=== PATIENT | female | born 1990 | race African-American/Black ===

== ENCOUNTER 2019-06-03 04:44 | Observation (INO) | payer MEDICAID ==
[~2019-06-03] VITALS: Ht 165.1 cm; Wt 73.0 kg
[2019-06-03 05:06] LABS: BILIRUBIN,URINE NEGATIVE (NEG); CLARITY,URINE CLEAR; COLOR,URINE YELLOW; NITRITE,URINE NEGATIVE (NEG); PH,URINE 6.5; PROTEIN,URINE NEGATIVE (NEG-TRACE); UROBILINOGEN,URINE 0.2 mg/dL (0.2 mg/dL)
--- NOTE | 2019-06-03 05:07 | PHYS DOC ---
Past Medical History Past Medical History: No Pertinent History (DIANN MENDES DO) Past Surgical History: No Surgical History (DIANN MENDES DO) Additional Information: Nonsmoker Alcohol Use: None Drug Use: None (DIANN MENDES DO) Adult General Chief Complaint Chief Complaint: ABDOMINAL PAIN IN HPI HPI 28-year-old female presents as a AB2 (ectopic x 1, elective x 1) with upper abdominal cramping in at approximately 20 weeks and 2 days. Reports has been intermittent for last 2 days but started again tonight approximately 40 min prior to arrival. Reports associated nausea and vomiting. Denies diarrhea. Patient does report some issues with constipation, but reports she had a "large" bowel movement tonight. Denies vaginal bleeding or discharge. Denies trauma. Denies fever or chills. (DIANN MENDES DO) Review of Systems Review of Systems Constitutional: Denies fever or chills Eyes: Denies redness or eye pain HENT: Denies nasal congestion or sore throat Respiratory: Denies cough or shortness of breath Cardiovascular: Denies chest pain or palpitations GI: Reports abdominal pain, nausea, vomiting, and constipation /GAME ROOM ATTENDANT: Denies dysuria or hematuria; reports ; denies vaginal discharge and bleeding Musculoskeletal: Denies back pain or joint pain Integument: Denies rash or skin lesions Neurologic: Denies headache, focal weakness or sensory changes Complete systems were reviewed and found to be within normal limits, except as documented in this note. (DIANN MENDES DO) Current Medications Current Medications Current Medications Medications (Trade) Dose Ordered Sig/Rolando Start Time Stop Time Status Last Admin Dose Admin Famotidine (Pepcid Vial) 20 mg 1X ONCE 06/03/19 05:30 06/03/19 05:31 DC 06/03/19 05:12 20 MG Fentanyl Citrate (Fentanyl 2ml Vial) 50 mcg 1X ONCE 06/03/19 06:30 06/03/19 06:31 DC 06/03/19 06:18 50 MCG Morphine Sulfate (Morphine Sulfate) 4 mg 1X ONCE 06/03/19 07:00 06/03/19 07:01 DC 06/03/19 06:45 4 MG Ondansetron HCl (Zofran) 4 mg 1X ONCE 06/03/19 06:30 06/03/19 06:31 DC Sodium Chloride 1,000 ml @ 1,000 mls/hr 1X ONCE 06/03/19 05:30 06/03/19 06:29 DC 06/03/19 05:12 1,000 MLS/HR (RICARDO STEWARD DO) Allergies Allergies Allergies Coded Allergies Type Severity Reaction Last Updated Verified No Known Drug Allergies 06/03/19 No (RICARDO STEWARD DO) Physical Exam Physical Exam Constitutional: Well developed, well nourished, no acute distress, non-toxic appearance HENT: Normocephalic, atraumatic, oropharynx moist Eyes: Conjunctiva normal, no discharge Neck: Normal range of motion, no tenderness, supple Cardiovascular: Heart rate normal, regular rhythm Lungs & Thorax: Bilateral breath sounds clear to auscultation, no wheezing Abdomen: Soft, gravid uterus, tenderness to upper abdominal region Skin: Warm, dry, no erythema Back: No tenderness, no CVA tenderness Extremities: No tenderness, ROM intact, no edema Neurologic: Alert and oriented X 3, normal motor function, normal sensory function, no focal deficits noted Psychologic: Affect normal, judgement normal (DIANN MENDES DO) Current Patient Data Vital Signs Vital Signs Date Time Temp Pulse Resp B/P (MAP) Pulse Ox O2 Delivery O2 Flow Rate FiO2 06/03/19 06:52 100 Room Air 06/03/19 06:45 18 06/03/19 04:55 97.7 85 97.7 06/03/19 04:50 117/60 (79) (RICARDO STEWARD DO) Lab Values Laboratory Tests Test 06/03/19 04:57 06/03/19 05:03 Urine Collection Type Unknown Urine Color Yellow Urine Clarity Clear Urine pH 6.5 Urine Specific [place] 1.010 Urine Protein Negative mg/dL (NEG-TRACE) Urine Glucose (UA) Negative mg/dL (NEG) Urine Ketones (Stick) Negative mg/dL (NEG) Urine Blood Negative (NEG) Urine Nitrite Negative (NEG) Urine Bilirubin Negative (NEG) Urine Urobilinogen Dipstick 0.2 mg/dL (0.2 mg/dL) Urine Leukocyte Esterase Negative (NEG) Urine RBC 0 /HPF (0-2) Urine WBC Occ /HPF (0-4) Urine Squamous Epithelial Cells Mod /LPF Urine Bacteria Few /HPF (0-FEW) Urine Mucus Slight /LPF White Blood Count 12.5 x10^3/uL (4.0-11.0) H Red Blood Count 3.57 x10^6/uL (3.50-5.40) Hemoglobin 11.6 g/dL (12.0-15.5) L Hematocrit 33.3 % (36.0-47.0) L Mean Corpuscular Volume 94 fL (79-100) Mean Corpuscular Hemoglobin 33 pg (25-35) Mean Corpuscular Hemoglobin Concent 35 g/dL (31-37) Red Cell Distribution Width 13.0 % (11.5-14.5) Platelet Count 178 x10^3/uL (140-400) Neutrophils (%) (Auto) 51 % (31-73) Lymphocytes (%) (Auto) 36 % (24-48) Monocytes (%) (Auto) 11 % (0-9) H Eosinophils (%) (Auto) 2 % (0-3) Basophils (%) (Auto) 1 % (0-3) Neutrophils # (Auto) 6.4 x10^3/uL (1.8-7.7) Lymphocytes # (Auto) 4.5 x10^3/uL (1.0-4.8) Monocytes # (Auto) 1.3 x10^3/uL (0.0-1.1) H Eosinophils # (Auto) 0.3 x10^3/uL (0.0-0.7) Basophils # (Auto) 0.1 x10^3/uL (0.0-0.2) Maternal Serum HCG Beta Subunit 85572 mIU/mL (0-5) H Sodium Level 137 mmol/L (136-145) Potassium Level 3.7 mmol/L (3.5-5.1) Chloride Level 103 mmol/L (98-107) Carbon Dioxide Level 23 mmol/L (21-32) Anion Gap 11 (6-14) Blood Urea Nitrogen 6 mg/dL (7-20) L Creatinine 0.7 mg/dL (0.6-1.0) Estimated GFR (Cockcroft-Gault) 122.4 BUN/Creatinine Ratio 9 (6-20) Glucose Level 109 mg/dL (70-99) H Calcium Level 9.3 mg/dL (8.5-10.1) Magnesium Level 1.7 mg/dL (1.8-2.4) L Total Bilirubin 0.2 mg/dL (0.2-1.0) Aspartate Amino Transferase (AST) 17 U/L (15-37) Alanine Aminotransferase (ALT) 23 U/L (14-59) Alkaline Phosphatase 54 U/L (46-116) Total Protein 7.0 g/dL (6.4-8.2) Albumin 3.0 g/dL (3.4-5.0) L Albumin/Globulin Ratio 0.8 (1.0-1.7) L Lipase 85 U/L (73-393) Laboratory Tests 06/03/19 05:03 Laboratory Tests 06/03/19 05:03 (RICARDO STEWARD ) Lab Values Laboratory Tests Test 06/03/19 04:57 06/03/19 05:03 Urine Collection Type Unknown Urine Color Yellow Urine Clarity Clear Urine pH 6.5 Urine Specific [place] 1.010 Urine Protein Negative mg/dL (NEG-TRACE) Urine Glucose (UA) Negative mg/dL (NEG) Urine Ketones (Stick) Negative mg/dL (NEG) Urine Blood Negative (NEG) Urine Nitrite Negative (NEG) Urine Bilirubin Negative (NEG) Urine Urobilinogen Dipstick 0.2 mg/dL (0.2 mg/dL) Urine Leukocyte Esterase Negative (NEG) Urine RBC 0 /HPF (0-2) Urine WBC Occ /HPF (0-4) Urine Squamous Epithelial Cells Mod /LPF Urine Bacteria Few /HPF (0-FEW) Urine Mucus Slight /LPF White Blood Count 12.5 x10^3/uL (4.0-11.0) H Red Blood Count 3.57 x10^6/uL (3.50-5.40) Hemoglobin 11.6 g/dL (12.0-15.5) L Hematocrit 33.3 % (36.0-47.0) L Mean Corpuscular Volume 94 fL (79-100) Mean Corpuscular Hemoglobin 33 pg (25-35) Mean Corpuscular Hemoglobin Concent 35 g/dL (31-37) Red Cell Distribution Width 13.0 % (11.5-14.5) Platelet Count 178 x10^3/uL (140-400) Neutrophils (%) (Auto) 51 % (31-73) Lymphocytes (%) (Auto) 36 % (24-48) Monocytes (%) (Auto) 11 % (0-9) H Eosinophils (%) (Auto) 2 % (0-3) Basophils (%) (Auto) 1 % (0-3) Neutrophils # (Auto) 6.4 x10^3/uL (1.8-7.7) Lymphocytes # (Auto) 4.5 x10^3/uL (1.0-4.8) Monocytes # (Auto) 1.3 x10^3/uL (0.0-1.1) H Eosinophils # (Auto) 0.3 x10^3/uL (0.0-0.7) Basophils # (Auto) 0.1 x10^3/uL (0.0-0.2) Sodium Level 137 mmol/L (136-145) Potassium Level 3.7 mmol/L (3.5-5.1) Chloride Level 103 mmol/L (98-107) Carbon Dioxide Level 23 mmol/L (21-32) Anion Gap 11 (6-14) Blood Urea Nitrogen 6 mg/dL (7-20) L Creatinine 0.7 mg/dL (0.6-1.0) Estimated GFR (Cockcroft-Gault) 122.4 BUN/Creatinine Ratio 9 (6-20) Glucose Level 109 mg/dL (70-99) H Calcium Level 9.3 mg/dL (8.5-10.1) Magnesium Level 1.7 mg/dL (1.8-2.4) L Total Bilirubin 0.2 mg/dL (0.2-1.0) Aspartate Amino Transferase (AST) 17 U/L (15-37) Alanine Aminotransferase (ALT) 23 U/L (14-59) Alkaline Phosphatase 54 U/L (46-116) Total Protein 7.0 g/dL (6.4-8.2) Albumin 3.0 g/dL (3.4-5.0) L Albumin/Globulin Ratio 0.8 (1.0-1.7) L Lipase 85 U/L (73-393) Laboratory Tests 06/03/19 05:03 Laboratory Tests 06/03/19 05:03 (DIANN MENDES DO) EKG EKG [] (DIANN MEDNES DO) Radiology/Procedures Radiology/Procedures [] (DIANN MENDES DO) Radiology/Procedures OB ultrasound: Viable week, 2 day, fetus. Right upper quadrant ultrasound: Cholelithiasis with sludge without evidence of acute cholecystitis, positive Cancino sign. (RICARDO STEWARD DO) Course & Med Decision Making Course & Med Decision Making Pertinent Labs and Imaging studies reviewed. (See chart for details) Patient presents with history of upper abdominal pain in at approxima tely 20 weeks and 2 days. Symptomatic treatment provided including Zofran and Pepcid. IVF hydration given. Labs obtained and posted to chart. UA without signs of infection. BHCG pending. ABO: O positive. OB ultrasound and ABD ultrasound pending. Sign out given to Dr. Berry for further evaluation and final disposition. Discussed current findings and plan with patient and family, who acknowledge understanding and agreement. (DIANN MENDES DO) Course & Med Decision Making Dr. Jenkins to admit for OB monitoring. General sz to consult. (RICARDO STEWARD DO) Dragon Disclaimer Dragon Disclaimer This electronic medical record was generated, in whole or in part, using a voice recognition dictation system. (DIANN MENDES DO) Departure Departure Impression: Primary Impression: Abdominal pain in Disposition: 09 ADMITTED INPATIENT Condition: STABLE Problem Qualifiers Primary Impression: Abdominal pain in Trimester: second trimester Qualified Codes: O26.892 - Other specified related conditions, second trimester; R10.9 - Unspecified abdominal pain DIANN MENDES DO Jun 03, 2019 05:07 RICARDO STEWARD DO Jun 03, 2019 07:18
[2019-06-03 05:15] LABS: BASO # 0.1 x10^3/uL (0.0-0.2); BASO % 1 % (0-3); EOS # 0.3 x10^3/uL (0.0-0.7); EOS % 2 % (0-3); HEMATOCRIT 33.3 % (36.0-47.0); HEMOGLOBIN 11.6 g/dL (12.0-15.5); LYMPH # 4.5 x10^3/uL (1.0-4.8); LYMPH % 36 % (24-48); MEAN CORPUSCULAR HEMOGLOBIN 33 pg (25-35); MEAN CORPUSCULAR HGB CONC 35 g/dL (31-37); MEAN CORPUSCULAR VOLUME 94 fL (79-100); MONO # 1.3 x10^3/uL (0.0-1.1); MONO % 11 % (0-9); NEUT # 6.4 x10^3/uL (1.8-7.7); NEUT % 51 % (31-73); PLATELET COUNT 178 x10^3/uL (140-400); RED BLOOD COUNT 3.57 x10^6/uL (3.50-5.40); WHITE BLOOD COUNT 12.5 x10^3/uL (4.0-11.0)
[2019-06-03 05:26] LABS: CALCIUM 9.3 mg/dL (8.5-10.1); CREATININE 0.7 mg/dL (0.6-1.0); GFR 122.4; POTASSIUM 3.7 mmol/L (3.5-5.1)
[2019-06-03] MEDS ORDERED: IV NORMAL SALINE 1000ML BAG 1,000 ML IV ONE (05:30)
[2019-06-03] MEDS ORDERED: ONDANSETRON PF 4 MG/2 ML VIAL. IV ONE ×2 (05:30→06:30)
[2019-06-03] MEDS ORDERED: FAMOTIDINE 20 MG/2 ML VIAL IVP ONE (05:30)
[2019-06-03 05:31] LABS: ALBUMIN/GLOBULIN RATIO 0.8 (1.0-1.7); MAGNESIUM 1.7 mg/dL (1.8-2.4); TOTAL BILIRUBIN 0.2 mg/dL (0.2-1.0)
[2019-06-03 05:33] LABS: SQUAMOUS EPITHELIAL CELL,UR MOD /LPF
[2019-06-03 05:34] LABS: BACTERIA,URINE FEW /HPF (0-FEW); RBC,URINE 0 /HPF (0-2); WBC,URINE OCC /HPF (0-4)
[2019-06-03] MEDS ORDERED: fentaNYL PF VIAL 100 MCG/2 ML VIAL IV ONE (06:30)
--- NOTE | 2019-06-03 06:49 | RAD ---
Obstetrical ultrasound HISTORY: Abdominal pain in . TECHNIQUE: Transabdominal transducer with grayscale and M-mode Doppler sonography. FINDINGS: Single living intrauterine fetus breech position with estimated sonographic gestational age of 20 weeks 2 days and date of delivery October 19, 2019. Estimated weight 324 g. Biparietal diameter 4.94 cm, gestational age 21 weeks 0 days, 81st percentile. Head circumference 18.09 cm, gestational age 20 weeks 4 days, 59th percentile. Abdominal circumference 14.56 m, gestational age 19 weeks 6 days, 35th percentile. Femur length 3.18 cm, gestational age 19 weeks 6 days, 33rd percentile. heart rate 139 bpm. Head/abdominal discomfort ratio 1.24. Cephalic index 80.2. anatomy was not assessed. Anterior placenta. Maternal cervix not visualized or documented. Maternal ovaries not visualized are documented. Subjectively normal volume of amniotic fluid, no index was calculated. IMPRESSION: Single living intrauterine fetus with estimated sonographic gestational age of 20 weeks 2 days as described above. Limited abdomen ultrasound HISTORY: Abdominal pain. FINDINGS: Limited visualization of the pancreas, aorta and IVC due to shadowing from bowel gas, the visualized segments of the structures are normal. Normal liver echogenicity. No liver mass or nodularity documented. There are is gallbladder sludge and gallstones present. No inflammatory change of the gallbladder. Ion Exchange Operator indicates a positive Cancino sign. No biliary ductal dilation common body diameters 5 mm. Right renal length of 10.1 cm. Shadowing limits visualization of right renal lower pole. No evidence right renal mass or hydronephrosis. Spleen and left kidney were not evaluated. IMPRESSION: Gallbladder sludge and stones. No inflammatory changes of the gallbladder evident although the patient did have a sonographic Cancino sign which could indicate early changes of cholecystitis. No biliary ductal dilation. Electronically signed by: Martínez Mesa MD (06/03/2019 6:46 AM) [facility]
[2019-06-03] MEDS ORDERED: MORPHINE SULFATE 4 MG/ML VIAL. IV ONE (07:00)
[2019-06-03] MEDS ORDERED: IV RINGERS,LACTATED 1000ML 1,000 ML IV ONE (07:30)
[2019-06-03] MEDS ORDERED: MORPHINE SULFATE 2 MG/ML VIAL. IV PRN (07:30)
[2019-06-03] MEDS ORDERED: ONDANSETRON PF 4 MG/2 ML VIAL. IV PRN (07:30)
[2019-06-03 08:45] VITALS: BP 92/60
--- NOTE | 2019-06-03 09:44 | PDOC2 ---
CAROLYN ARAGON REHABILITATION COUNSELOR 06/03/19 0944: CONSULT Date of Consult Date of Consult DATE: 06/03/19 TIME: 09:39 Reason for Consult Reason for Consult: abdominal pain Referring Physician Referring Physician: ER Identification/Chief Complaint Chief Complaint abd pain Source Source: Chart review, Patient History of Present Illness Reason for Visit: admitted with acute RUQ pain with radiation to back. Associated nausea. + con stipation. No similar symptoms in past. Alleviated by pain medication in ER. Past Medical History Past Medical History no pertinent hx Past Surgical History Past Surgical History: No pertinent history Family History Family History: Other (noncontributory to current illness ) Social History No ALCOHOL: none Drugs: None Lives: with Family Current Problem List Problem List Problems Medical Problems: (1) Abdominal pain in Status: Acute Current Medications Current Medications Current Medications Sodium Chloride 1,000 ml @ 1,000 mls/hr 1X ONCE IV Last administered on 06/03/19at 05:12; Start 06/03/19 at 05:30; Stop 06/03/19 at 06:29; Status DC Ondansetron HCl (Zofran) 4 mg 1X ONCE IV Last administered on 06/03/19at 05:12; Start 06/03/19 at 05:30; Stop 06/03/19 at 05:31; Status DC Famotidine (Pepcid Vial) 20 mg 1X ONCE IVP Last administered on 06/03/19at 05:12; Start 06/03/19 at 05:30; Stop 06/03/19 at 05:31; Status DC Fentanyl Citrate (Fentanyl 2ml Vial) 50 mcg 1X ONCE IV Last administered on 06/03/19at 06:18; Start 06/03/19 at 06:30; Stop 06/03/19 at 06:31; Status DC Ondansetron HCl (Zofran) 4 mg 1X ONCE IV ; Start 06/03/19 at 06:30; Stop 06/03/19 at 06:31; Status DC Morphine Sulfate (Morphine Sulfate) 4 mg 1X ONCE IV Last administered on 06/03/19at 06:45; Start 06/03/19 at 07:00; Stop 06/03/19 at 07:01; Status DC Ondansetron HCl (Zofran) 4 mg PRN Q8HRS PRN IV NAUSEA/VOMITING; Start 06/03/19 at 07:30; Stop 06/04/19 at 07:29 Morphine Sulfate (Morphine Sulfate) 2 mg PRN Q2HR PRN IV PAIN; Start 06/03/19 at 07:30; Stop 06/04/19 at 07:29 Ringer's Solution 1,000 ml @ 150 mls/hr 1X ONCE IV Last administered on 06/03/19at 08:43; Start 06/03/19 at 07:30; Stop 06/03/19 at 14:09 Allergies Allergies: Coded Allergies: No Known Drug Allergies (Unverified , 06/03/19) ROS General: No: Chills, Other (fevers ) PSYCHOLOGICAL ROS: No: Anxiety, Depression Eyes: No Blurry vision, No Double vision HEENT: No: Heacaches, Sore Throat Hematological and Lymphatic: No: Bleeding Problems, Blood Clots Respiratory: No: Cough, SOB with excertion Cardiovascular: yes Chest Pain (due to abd pain); No Palpitations Gastrointestinal: Yes Other (see hpi) Genitourinary: No Dysuria, No Hematuria Musculoskeletal: No Joint Pain, No Muscle Pain Neurological: No Confusion, No Impaired Coord/balance Skin: No Pruritus, No Rash Physical Exam General: Alert, Oriented X3, Cooperative, No acute distress HEENT: PERRLA, Mucous membr. moist/pink Lungs: Clear to auscultation, Normal air movement Heart: Regular rate, Normal S1, Normal S2, No murmurs Abdomen: Soft, Other ( abdomen, nontender on exam) Extremities: No clubbing, No cyanosis Skin: No rashes, No breakdown Neuro: Normal gait, Normal speech Psych/Mental Status: Mental status NL, Mood NL MUSCULOSKELETAL: No deformity, No swelling Vitals VITALS Vital Signs Date Time Temp Pulse Resp B/P (MAP) Pulse Ox O2 Delivery O2 Flow Rate FiO2 06/03/19 07:10 88 106/66 (79) 100 Room Air 06/03/19 06:45 18 06/03/19 04:55 97.7 97.7 Labs Labs Laboratory Tests Test 06/03/19 04:57 06/03/19 05:03 Urine Collection Type Unknown Urine Color Yellow Urine Clarity Clear Urine pH 6.5 Urine Specific [place] 1.010 Urine Protein Negative mg/dL (NEG-TRACE) Urine Glucose (UA) Negative mg/dL (NEG) Urine Ketones (Stick) Negative mg/dL (NEG) Urine Blood Negative (NEG) Urine Nitrite Negative (NEG) Urine Bilirubin Negative (NEG) Urine Urobilinogen Dipstick 0.2 mg/dL (0.2 mg/dL) Urine Leukocyte Esterase Negative (NEG) Urine RBC 0 /HPF (0-2) Urine WBC Occ /HPF (0-4) Urine Squamous Epithelial Cells Mod /LPF Urine Bacteria Few /HPF (0-FEW) Urine Mucus Slight /LPF White Blood Count 12.5 x10^3/uL (4.0-11.0) Red Blood Count 3.57 x10^6/uL (3.50-5.40) Hemoglobin 11.6 g/dL (12.0-15.5) Hematocrit 33.3 % (36.0-47.0) Mean Corpuscular Volume 94 fL (79-100) Mean Corpuscular Hemoglobin 33 pg (25-35) Mean Corpuscular Hemoglobin Concent 35 g/dL (31-37) Red Cell Distribution Width 13.0 % (11.5-14.5) Platelet Count 178 x10^3/uL (140-400) Neutrophils (%) (Auto) 51 % (31-73) Lymphocytes (%) (Auto) 36 % (24-48) Monocytes (%) (Auto) 11 % (0-9) Eosinophils (%) (Auto) 2 % (0-3) Basophils (%) (Auto) 1 % (0-3) Neutrophils # (Auto) 6.4 x10^3/uL (1.8-7.7) Lymphocytes # (Auto) 4.5 x10^3/uL (1.0-4.8) Monocytes # (Auto) 1.3 x10^3/uL (0.0-1.1) Eosinophils # (Auto) 0.3 x10^3/uL (0.0-0.7) Basophils # (Auto) 0.1 x10^3/uL (0.0-0.2) Maternal Serum HCG Beta Subunit 53180 mIU/mL (0-5) Sodium Level 137 mmol/L (136-145) Potassium Level 3.7 mmol/L (3.5-5.1) Chloride Level 103 mmol/L (98-107) Carbon Dioxide Level 23 mmol/L (21-32) Anion Gap 11 (6-14) Blood Urea Nitrogen 6 mg/dL (7-20) Creatinine 0.7 mg/dL (0.6-1.0) Estimated GFR (Cockcroft-Gault) 122.4 BUN/Creatinine Ratio 9 (6-20) Glucose Level 109 mg/dL (70-99) Calcium Level 9.3 mg/dL (8.5-10.1) Magnesium Level 1.7 mg/dL (1.8-2.4) Total Bilirubin 0.2 mg/dL (0.2-1.0) Aspartate Amino Transf (AST/SGOT) 17 U/L (15-37) Alanine Aminotransferase (ALT/SGPT) 23 U/L (14-59) Alkaline Phosphatase 54 U/L (46-116) Total Protein 7.0 g/dL (6.4-8.2) Albumin 3.0 g/dL (3.4-5.0) Albumin/Globulin Ratio 0.8 (1.0-1.7) Amylase Level 86 U/L (25-115) Lipase 85 U/L (73-393) Laboratory Tests Test 06/03/19 04:57 06/03/19 05:03 Urine Collection Type Unknown Urine Color Yellow Urine Clarity Clear Urine pH 6.5 Urine Specific [place] 1.010 Urine Protein Negative mg/dL (NEG-TRACE) Urine Glucose (UA) Negative mg/dL (NEG) Urine Ketones (Stick) Negative mg/dL (NEG) Urine Blood Negative (NEG) Urine Nitrite Negative (NEG) Urine Bilirubin Negative (NEG) Urine Urobilinogen Dipstick 0.2 mg/dL (0.2 mg/dL) Urine Leukocyte Esterase Negative (NEG) Urine RBC 0 /HPF (0-2) Urine WBC Occ /HPF (0-4) Urine Squamous Epithelial Cells Mod /LPF Urine Bacteria Few /HPF (0-FEW) Urine Mucus Slight /LPF White Blood Count 12.5 x10^3/uL (4.0-11.0) Red Blood Count 3.57 x10^6/uL (3.50-5.40) Hemoglobin 11.6 g/dL (12.0-15.5) Hematocrit 33.3 % (36.0-47.0) Mean Corpuscular Volume 94 fL (79-100) Mean Corpuscular Hemoglobin 33 pg (25-35) Mean Corpuscular Hemoglobin Concent 35 g/dL (31-37) Red Cell Distribution Width 13.0 % (11.5-14.5) Platelet Count 178 x10^3/uL (140-400) Neutrophils (%) (Auto) 51 % (31-73) Lymphocytes (%) (Auto) 36 % (24-48) Monocytes (%) (Auto) 11 % (0-9) Eosinophils (%) (Auto) 2 % (0-3) Basophils (%) (Auto) 1 % (0-3) Neutrophils # (Auto) 6.4 x10^3/uL (1.8-7.7) Lymphocytes # (Auto) 4.5 x10^3/uL (1.0-4.8) Monocytes # (Auto) 1.3 x10^3/uL (0.0-1.1) Eosinophils # (Auto) 0.3 x10^3/uL (0.0-0.7) Basophils # (Auto) 0.1 x10^3/uL (0.0-0.2) Maternal Serum HCG Beta Subunit 20425 mIU/mL (0-5) Sodium Level 137 mmol/L (136-145) Potassium Level 3.7 mmol/L (3.5-5.1) Chloride Level 103 mmol/L (98-107) Carbon Dioxide Level 23 mmol/L (21-32) Anion Gap 11 (6-14) Blood Urea Nitrogen 6 mg/dL (7-20) Creatinine 0.7 mg/dL (0.6-1.0) Estimated GFR (Cockcroft-Gault) 122.4 BUN/Creatinine Ratio 9 (6-20) Glucose Level 109 mg/dL (70-99) Calcium Level 9.3 mg/dL (8.5-10.1) Magnesium Level 1.7 mg/dL (1.8-2.4) Total Bilirubin 0.2 mg/dL (0.2-1.0) Aspartate Amino Transf (AST/SGOT) 17 U/L (15-37) Alanine Aminotransferase (ALT/SGPT) 23 U/L (14-59) Alkaline Phosphatase 54 U/L (46-116) Total Protein 7.0 g/dL (6.4-8.2) Albumin 3.0 g/dL (3.4-5.0) Albumin/Globulin Ratio 0.8 (1.0-1.7) Amylase Level 86 U/L (25-115) Lipase 85 U/L (73-393) Assessment/Plan Assessment/Plan symptomatic cholelithiasis, no findings of cholecystitis--normal LFts,afebrile, no pericholecystic fluid or gallbladder wall thickening 20 weeks attempt conservative measures with low fat diet, pain uncontrol, would rec re eval for elective lap jasmyn once delivers d/w VIRAJ Mosley MD 06/04/19 0958: CONSULT Assessment/Plan Assessment/Plan Agree with above CAROLYN ARAGON APRN Jun 03, 2019 09:44 VIRAJ JIN MD Jun 04, 2019 09:58
[2019-06-03 12:05] VITALS: BP 102/67
--- NOTE | 2019-06-03 14:46 | HP ---
ADMIT DATE: 06/03/2019 ADMISSION DIAGNOSES: Gallbladder colic and cholelithiasis. HISTORY OF PRESENT ILLNESS: This 28-year-old 3, para 0 approximately 20 weeks and 2 days intrauterine seen by [facility] physicians who presented to the ER with abdominal pain and cramping. The patient was having some nausea and vomiting, but denied any diarrhea. No fevers or chills. The patient has never had this type of problem in the past. The patient states the to this point is unremarkable. REVIEW OF SYSTEMS: Per HPI. CURRENT MEDICATIONS: vitamins. ALLERGIES: No known drug allergies. PHYSICAL EXAMINATION: ABDOMEN: Per ER physician, the patient's abdomen is soft and gravid. Abdomen had positive Cancino sign on my exam. Vaginal exam was not performed. VITAL SIGNS: Temperature is 97.7, pulse 85, blood pressure 117/60, pulse 100. LABORATORY DATA: Urine was unremarkable. CMP was reviewed and was unremarkable. Hemoglobin and hematocrit 11.5 and 33.3, white cell count 12.5. Ultrasound report reviewed consistent with sludge and stones in the gallbladder. No inflammatory changes were present. IMPRESSION: 20 weeks and 2 days intrauterine with gallbladder colic and cholelithiasis. PLAN: IV pain control. Consult General Surgery. DEANDRE TEIXEIRA MD DR: REFUGIO/prasanna JOB#: [id number] / [id number]
[2019-06-03 18:06] VITALS: BP 101/56
[2019-06-03 20:00] VITALS: BP 101/62
--- NOTE | 2019-06-03 23:06 | NUR ---
heart tones assessed this shift by CHRISTIANO Cain. Baseline heart rate in 150s. Pt has no complaints of pain and/or nausea so far this shift. Will continue to monitor.
[2019-06-04] VITALS: BP 96/52
[2019-06-04 06:00] VITALS: BP 98/55
--- NOTE | 2019-06-04 10:34 | PDOC ---
PROGRESS NOTES Subjective Subjective doing well today, tolerating clears, no pain Objective Objective Vital Signs Date Time Temp Pulse Resp B/P (MAP) Pulse Ox O2 Delivery O2 Flow Rate FiO2 06/04/19 06:00 98.5 84 16 98/55 (69) 98 98.5 06/04/19 00:00 Room Air Intake and Output 06/04/19 07:00 # Voids 9 Physical Exam Physical Exam abdomen soft, , nontender Assessment Assessment Problems Medical Problems: (1) Abdominal pain in Status: Acute (2) Gallbladder colic Status: Acute Plan Plan of Care Clinically improved; recommend low fat diet, hopefully will get to delivery with no further problems; FU with me after delivery to discuss potential lap jasmyn Comment Review of Relevant I have reviewed the following items jose (where applicable) has been applied. Labs Laboratory Tests Test 06/03/19 04:57 06/03/19 05:03 Urine Collection Type Unknown Urine Color Yellow Urine Clarity Clear Urine pH 6.5 Urine Specific [place] 1.010 Urine Protein Negative mg/dL (NEG-TRACE) Urine Glucose (UA) Negative mg/dL (NEG) Urine Ketones (Stick) Negative mg/dL (NEG) Urine Blood Negative (NEG) Urine Nitrite Negative (NEG) Urine Bilirubin Negative (NEG) Urine Urobilinogen Dipstick 0.2 mg/dL (0.2 mg/dL) Urine Leukocyte Esterase Negative (NEG) Urine RBC 0 /HPF (0-2) Urine WBC Occ /HPF (0-4) Urine Squamous Epithelial Cells Mod /LPF Urine Bacteria Few /HPF (0-FEW) Urine Mucus Slight /LPF White Blood Count 12.5 x10^3/uL (4.0-11.0) Red Blood Count 3.57 x10^6/uL (3.50-5.40) Hemoglobin 11.6 g/dL (12.0-15.5) Hematocrit 33.3 % (36.0-47.0) Mean Corpuscular Volume 94 fL (79-100) Mean Corpuscular Hemoglobin 33 pg (25-35) Mean Corpuscular Hemoglobin Concent 35 g/dL (31-37) Red Cell Distribution Width 13.0 % (11.5-14.5) Platelet Count 178 x10^3/uL (140-400) Neutrophils (%) (Auto) 51 % (31-73) Lymphocytes (%) (Auto) 36 % (24-48) Monocytes (%) (Auto) 11 % (0-9) Eosinophils (%) (Auto) 2 % (0-3) Basophils (%) (Auto) 1 % (0-3) Neutrophils # (Auto) 6.4 x10^3/uL (1.8-7.7) Lymphocytes # (Auto) 4.5 x10^3/uL (1.0-4.8) Monocytes # (Auto) 1.3 x10^3/uL (0.0-1.1) Eosinophils # (Auto) 0.3 x10^3/uL (0.0-0.7) Basophils # (Auto) 0.1 x10^3/uL (0.0-0.2) Maternal Serum HCG Beta Subunit 87294 mIU/mL (0-5) Sodium Level 137 mmol/L (136-145) Potassium Level 3.7 mmol/L (3.5-5.1) Chloride Level 103 mmol/L (98-107) Carbon Dioxide Level 23 mmol/L (21-32) Anion Gap 11 (6-14) Blood Urea Nitrogen 6 mg/dL (7-20) Creatinine 0.7 mg/dL (0.6-1.0) Estimated GFR (Cockcroft-Gault) 122.4 BUN/Creatinine Ratio 9 (6-20) Glucose Level 109 mg/dL (70-99) Calcium Level 9.3 mg/dL (8.5-10.1) Magnesium Level 1.7 mg/dL (1.8-2.4) Total Bilirubin 0.2 mg/dL (0.2-1.0) Aspartate Amino Transf (AST/SGOT) 17 U/L (15-37) Alanine Aminotransferase (ALT/SGPT) 23 U/L (14-59) Alkaline Phosphatase 54 U/L (46-116) Total Protein 7.0 g/dL (6.4-8.2) Albumin 3.0 g/dL (3.4-5.0) Albumin/Globulin Ratio 0.8 (1.0-1.7) Amylase Level 86 U/L (25-115) Lipase 85 U/L (73-393) Medications Current Medications Sodium Chloride 1,000 ml @ 1,000 mls/hr 1X ONCE IV Last administered on 06/03/19at 05:12; Start 06/03/19 at 05:30; Stop 06/03/19 at 06:29; Status DC Ondansetron HCl (Zofran) 4 mg 1X ONCE IV Last administered on 06/03/19at 05:12; Start 06/03/19 at 05:30; Stop 06/03/19 at 05:31; Status DC Famotidine (Pepcid Vial) 20 mg 1X ONCE IVP Last administered on 06/03/19at 05:12; Start 06/03/19 at 05:30; Stop 06/03/19 at 05:31; Status DC Fentanyl Citrate (Fentanyl 2ml Vial) 50 mcg 1X ONCE IV Last administered on 06/03/19at 06:18; Start 06/03/19 at 06:30; Stop 06/03/19 at 06:31; Status DC Ondansetron HCl (Zofran) 4 mg 1X ONCE IV ; Start 06/03/19 at 06:30; Stop 06/03/19 at 06:31; Status DC Morphine Sulfate (Morphine Sulfate) 4 mg 1X ONCE IV Last administered on 05/18 04/04at 06:45; Start 06/03/19 at 07:00; Stop 06/03/19 at 07:01; Status DC Ondansetron HCl (Zofran) 4 mg PRN Q8HRS PRN IV NAUSEA/VOMITING; Start 06/03/19 at 07:30; Stop 06/04/19 at 07:29; Status DC Morphine Sulfate (Morphine Sulfate) 2 mg PRN Q2HR PRN IV PAIN Last administered on 06/03/19at 13:04; Start 06/03/19 at 07:30; Stop 06/04/19 at 07:29; Status DC Ringer's Solution 1,000 ml @ 150 mls/hr 1X ONCE IV Last administered on 06/03/19at 08:43; Start 06/03/19 at 07:30; Stop 06/03/19 at 14:09; Status DC Levofloxacin/ Dextrose 150 ml @ 100 mls/hr Q24H IV ; Start 06/04/19 at 09:00; Status Cancel Vitals/I & O Vital Sign - Last 24 Hours 06/03/19 06/03/19 06/03/19 06/03/19 12:05 13:04 18:06 20:00 Temp 97.8 98.4 98.7 97.8 98.4 98.7 Pulse 78 92 83 Resp 18 18 16 18 B/P (MAP) 102/67 (79) 101/56 (71) 101/62 (75) Pulse Ox 99 99 100 O2 Delivery Room Air Room Air Room Air 06/03/19 06/04/19 06/04/19 20:00 00:00 06:00 Temp 97.9 98.5 97.9 98.5 Pulse 77 84 Resp 16 16 B/P (MAP) 96/52 (67) 98/55 (69) Pulse Ox 97 98 O2 Delivery Room Air Room Air VIRAJ JIN MD Jun 04, 2019 10:34
[2019-06-04 11:10] VITALS: BP 105/65
[2019-06-04 14:38] VITALS: BP 101/54
--- NOTE | 2019-06-04 15:00 | NUR ---
Nursing Note: Pt. provided with copy of discharge care instructions and prescription. Pt. denies needs or questions, denies need for wheel chair. Pt. discharged home with family and belongings. Benita Hightower RN
== END 2019-06-04 15:00 | disposition home or self-care (01) ==
LOC: ER 04:44 → 3 NORTH 07:00
PROVIDERS: ADMIT Specialist; ATTEND Specialist
DX: O26.612 Liver and biliary tract disorders in pregnancy, second trimester (principal); O99.612 Diseases of the digestive system complicating pregnancy, second trimester; O21.2 Late vomiting of pregnancy; K80.20 Calculus of gallbladder without cholecystitis without obstruction; O26.892 Other specified pregnancy related conditions, second trimester; K59.00 Constipation, unspecified; Z3A.20 20 weeks gestation of pregnancy
CPT/HCPCS: 36415; 76705; 76815; 80053; 81001; 82150; 83690; 83735; 84702; 85025; 86900; 86901; 96361; 96374; 96375; 96376; 99284; G0378; J2270; J2405; J3010; J3490; J7030; J7120; G0379

== ENCOUNTER 2019-11-17 06:06 | Day surgery (SDC) | payer MEDICAID ==
[~2019-11-17] VITALS: Ht 165.1 cm; Wt 75.5 kg
[~2019-11-17 06:06] MED LIST: ceFAZolin SODIUM IV Push 1 GM VIAL. IVP ONE
[2019-11-17] MEDS ORDERED: LIDOCAINE 1% PF 2 ML VIAL. ID PRN (07:00)
[2019-11-17] MEDS ORDERED: ONDANSETRON PF 4 MG/2 ML VIAL. IV PRN (07:00)
[2019-11-17] MEDS ORDERED: MORPHINE SULFATE 2 MG/ML VIAL. IV PRN (07:00)
[2019-11-17] MEDS ORDERED: IV RINGERS,LACTATED 1000ML 1,000 ML IV SCH (07:00)
[2019-11-17] MEDS ORDERED: PROCHLORPERAZINE 10 MG/2 ML VIAL. IV PRN (07:00)
[2019-11-17] MEDS ORDERED: HYDROmorphone 2 MG/ML VIAL IV PRN (07:00)
[2019-11-17] MEDS ORDERED: fentaNYL PF VIAL 100 MCG/2 ML VIAL IV PRN ×2 (07:00)
[2019-11-17] MEDS ORDERED: PROPOFOL 20 ML IV ONE (07:07)
[2019-11-17] MEDS ORDERED: ONDANSETRON PF 4 MG/2 ML VIAL. ONE (07:07)
[2019-11-17] MEDS ORDERED: FAMOTIDINE 20 MG/2 ML VIAL ONE (07:07)
[2019-11-17] MEDS ORDERED: DEXAMETHASONE SOD PHOS 4 MG/ML VIAL ONE ×2 (07:07)
[2019-11-17] MEDS ORDERED: LIDOCAINE 2% PF 5 ML VIAL. ONE (07:07)
[2019-11-17] MEDS ORDERED: IOHEXOL 300 MG/ML 50 ML VIAL. ONE (07:08)
[2019-11-17] MEDS ORDERED: SURGICEL HEMOSTAT 4X8 EACH. ONE (07:09)
[2019-11-17] MEDS ORDERED: BUPIVACAINE MPF 0.5% 30 ML VIAL. ONE (07:09)
[2019-11-17] MEDS ORDERED: SUCCINYLCHOLINE 200 MG/10 ML VIAL. ONE (07:11)
[2019-11-17] MEDS ORDERED: ROCURONIUM 50 MG/5 ML VIAL. ONE (07:11)
[2019-11-17] MEDS ORDERED: fentaNYL PF VIAL 100 MCG/2 ML VIAL ONE ×2 (07:13→08:13)
[2019-11-17] MEDS ORDERED: MIDAZOLAM HCL/PF 2 MG/2 ML VIAL. ONE (07:13)
[2019-11-17] MEDS ORDERED: NEOSTIGMINE METHYLSULFATE 5 MG/5 ML SYRINGE. ONE (08:17)
[2019-11-17] MEDS ORDERED: GLYCOPYRROLATE 1 MG/5 ML VIAL. ONE (08:17)
[2019-11-17] MEDS ORDERED: KETOROLAC 30 MG/ML VIAL. ONE (08:33)
[2019-11-17] MEDS ORDERED: SEVOFLURANE 31 TO 60 MINUTES. IH ONE (08:33)
--- NOTE | 2019-11-17 08:56 | PDOC4 ---
Operative Note Operative Note Operative Note: Preoperative Diagnosis: Symptomatic cholelithiasis Postoperative Diagnosis: Same Procedure: Laparoscopic cholecystectomy with intraoperative cholangiogram Surgeons: Mathew Briceño: Jc MARKS Anesthesia: Gen. Estimated Blood Loss: 10 mL Specimen: Gallbladder to pathology Drains: None Complications: None Indications: The patient is a 28 year old female who was referred with suspected symptomatically cholelithiasis. Surgical treatment was offered by means of a laparoscopic cholecystectomy. The risks of surgery were discussed which include bleeding, infection, bile duct injury, bile leak, pain, the potential for additional surgeries or procedures. The patient understands and would like to proceed. Description: The patient was taken to the operating room and laid supine on the operating table. General anesthesia was performed. The abdomen was prepped with ChloraPrep and draped in a standard surgical fashion. A small infraumbilical incision was made with a scalpel. The Veress needle was then inserted and a pneumoperitoneum was then created. A 5 mm trocar was then inserted and the laparoscope was introduced. In the upper midabdomen a 5 mm trocar was inserted and in the right upper quadrant two 2.3 mm mini lap graspers were inserted. The gallbladder was retracted cephalad. The cystic duct was dissected free from surrounding tissues. One clip was placed on the duct near the gallbladder junction. An opening was made in the duct and a cholangiocatheter placed within and secured with a clip. Using contrast dye and fluoroscopy an intraoperative cholangiogram was performed that appeared unremarkable. The clip and catheter were then withdrawn. Three clips were placed on the cystic duct and it was divided. The cystic artery was then identified, dissected free, doubly clipped and divided as well. The gallbladder was then mobilized away from the liver with cautery. The umbilical 5 millimeter trocar was exchanged for an 11 millimeter trocar. The gallbladder was then placed in an endoscopic bag and extracted at the umbilical trocar site. The fascia there was closed with an 0 Vicryl suture. All blood and irrigation fluid was suctioned and hemostasis was good. The remaining ports were removed and the pneumoperitoneum was relieved. The skin incisions were injected with half per cent Marcaine with epinephrine, and all were closed using 4-0 Monocryl suture. Steri-Strips and dressings were then applied. The patient tolerated the procedure well and was sent to the recovery room in stable condition. At the end of the case all counts were correct. VIRAJ JIN MD Nov 17, 2019 08:56
--- NOTE | 2019-11-17 08:58 | DISCH ---
DISCHARGE INSTRUCTIONS Condition on Discharge Condition on Discharge: Stable Activity After Discharge Activity Instructions for Disc: Other, see below (no lifting over 20 lbs X 2 weeks) Driving Instructions after Dis: Other, see below (no driving while taking pain meds) Diet after Discharge Diet after Discharge: Regular Wound Incision Care Wound/Incision Care: Other, see below (may remove bandaids and shower tomorrow) Follow-Up Follow up with: FU with Dr Jin in 2 weeks in office, call for appt [phone] VIRAJ JIN MD Nov 17, 2019 08:58
--- NOTE | 2019-11-17 09:05 | RAD ---
CHOLANGIOGRAM INTRAOPERATIVE History: Cholecystectomy, cholangiogram Comparison: None. Findings: Interpretation is made of submitted images only, exam performed by different physician. 3 low resolution intraprocedural views from a cholangiogram are submitted. There has been introduction of contrast into the cystic duct. There is no defined filling defect of the normal caliber common bile duct. There is contrast in the duodenum. Fluoroscopy time 0.6 minutes, 3 images Impression: 1. No filling defect is identified of the normal caliber common bile duct. Electronically signed by: Genaro Cabrera MD (11/17/2019 9:02 AM) [id number]
[2019-11-17] MEDS ORDERED: OXYC-325 PO (09:10)
[2019-11-17] MEDS ORDERED: oxyCODONE/APAP 5/325 1 TAB TABLET PO ONE ×2 (09:15)
[2019-11-17 10:05] VITALS: BP 133/88
== END 2019-11-17 10:43 | disposition home or self-care (01) ==
LOC: SURG 06:06
PROVIDERS: ATTEND Surgery
DX: K80.20 Calculus of gallbladder without cholecystitis without obstruction (principal); E66.9 Obesity, unspecified; Z68.27 Body mass index [BMI] 27.0-27.9, adult
CPT/HCPCS: 47563; 74300; 81025; J0330; J0690; J1100; J1885; J2001; J2250; J2405; J2704; J2710; J3010; J3490; Q9967; A7015; J7030; J7120